=== PATIENT | female | born 1980 | race Caucasian/White ===

== ENCOUNTER 2018-09-26 12:13 | Day surgery (SDC) | payer OTHER ==
[2018-09-26] MEDS ORDERED: LIDOCAINE 2% (SDV) 5 ML INJ (14:47)
[2018-09-26] MEDS ORDERED: PROPOFOL 40 ML (14:47)
== END 2018-09-26 16:54 | disposition home or self-care (01) ==
LOC: GIL 12:13
DX: R19.7 Diarrhea, unspecified (principal); F17.200 Nicotine dependence, unspecified, uncomplicated
CPT/HCPCS: 45378; 84703; 88305